=== PATIENT | male | born 2000 | race Caucasian/White ===

== ENCOUNTER 2022-12-10 16:18 | Observation (INO) ==
[2022-12-10] MEDS ORDERED: LIDO/EPINEPHRINE/SOD BICARB 50 ML VIAL INFIL ONE (16:40)
[2022-12-10] MEDS ORDERED: DIPHTHERIA/TETANUS/PERTUSSIS 0.5mL SYR/VIAL (Age 7+yrs) IM ONE (16:42)
--- NOTE | 2022-12-10 16:47 | Emergency Department Note ---
Impression & Plan Puncture wound of right knee with complication, Joint injury of right knee ED Provider Note CHIEF COMPLAINT: Right knee laceration HISTORY OF PRESENT ILLNESS: This 22-year-old male patient presents to the emergency department by private vehicle with complaint of laceration to the back of his right knee that occurred around 4 PM today. The patient states that he was trying to climb over a fence and fell off the post in the back of his knee got impaled on a metal fence post. The patient's girlfriend states she had to lift his leg up off of the metal post. The bleeding has not stopped. He denies weakness or numbness of the leg. The patient rates the pain as throbbing and 8/10. The patient denies any other injuries from the fall. The patient's Tetanus shot is not up to date. The patient has not noticed any swelling or bruising in the rest of the leg. There is pain with bending the knee and walking on the leg. The patient states he is able to walk on it. He denies any previous injuries to this knee. No ankle, foot or hip pain. He does not take any blood thinner medications. REVIEW OF SYSTEMS: A complete 10 point review of systems was reviewed with the patient with pertinent positives and negatives as per history of present illness. All else were negative. ALLERGIES: No known allergies PMH: No significant past medical or surgical history SOCIAL HISTORY: Lives at home, patient is a [employer] student, denies tobacco use PHYSICAL EXAM: Vital Signs: Reviewed in triage notes, vital signs stable. GENERAL: Pleasant and cooperative, in no acute distress, well-developed, well- nourished. NEUROLOGIC: Alert and oriented X 4 with normal affect. No focal neurologic deficits noted. Normal strength and sensation in all 4 extremities. Normal speech. HEENT: Normocephalic, atraumatic. NECK: Supple, full active range of motion without discomfort. RESPIRATORY: Clear to auscultation bilaterally with no wheezing, crackles, rhonchi or stridor. Equal expansion bilaterally. CARDIOVASCULAR: Regular rate and rhythm with no murmurs, rubs or gallops. Normal peripheral perfusion, 2+ pulses in all 4 extremities. No peripheral edema. GASTROINTESTINAL: Soft, nontender, nondistended. No rebound tenderness or guarding. No palpable masses or HSM. Bowel sounds present in all quadrants. No CVA tenderness bilaterally. SKIN: There is an open gaping laceration on the posterior aspect of the right knee which is approximately 3 cm in length. The edges gape widely apart. There is no foreign material in the wound and it looks clean. There is minimal active bleeding. There is muscle noted in the base of the wound, no bone or tendon seen. Normal strength and movement of the knee joint, pain with flexion and full extension. Capillary refill less than 2 seconds. Normal sensation to light and sharp touch. MUSCULOSKELETAL: The right knee is not swollen. There is an area of ecchymosis on the anterior lateral aspect of the knee. There is tenderness along the lateral aspect of the knee with palpation and lateral joint line tenderness. There is no joint effusion present. There is extensive palpable crepitus along the lateral and posterior aspect of the right knee, extending into the distal thigh and proximal posterior and lateral calf region. The patella does not subluxate. Strength of the quads and hamstrings is 5/5. The foot and toes are warm and well-perfused. Dorsalis pedis and posterior tibialis pulses are 2+. Sensation to pain and light touch is intact. Capillary refill less than 2 seconds. EMERGENCY DEPARTMENT COURSE: I examined the patient. There is a large gaping wound in the posterior lateral aspect of the right knee and an area of ecchymosis in the anterolateral aspect of the knee which correlates to the area where the patient was impaled by the metal fence post. The patient's girlfriend notes that there was tenting of the fence post on the anterior skin, but it did not penetrate through the skin on the anterior aspect. By my measurement, the fence post probably penetrated by 10-11 cm. Tdap booster vaccine was given. An x-ray of the right knee was performed, which shows extensive subcutaneous and deep soft tissue gas along the lateral aspect of the knee which may extend into the suprapatellar joint space. Additional orders were placed for labs, IV fluids, and 2 g IV Ancef for antibiotic coverage. I spoke on the phone with Dr. Antunez, orthopedic surgery, who recommended performing CT noncontrast of the right knee to evaluate for intra-articular gas. CT was ordered and reviewed, read by stat rad and noting air extending into the joint capsule concerning for injury to the lateral retinacular structures, with no findings for fracture. CT findings were discussed with Dr. Antunez, he recommended that I perform washout and loose closure of the wound for now (see procedure note below) and he will plan to take the patient to the OR in the morning for formal washout. The patient will be admitted for observation overnight to the orthopedic service. The patient was updated on the plan for admission and surgery in the morning, he verbalized understanding and was comfortable with this plan. I did offer to speak with the patient's parents regarding this plan, however the patient declined and states he has been keeping his parents updated. The patient was stable at the time of admission. PROCEDURE NOTE: Right Knee Laceration Repair Verbal consent was obtained from the patient to perform the procedure. Using sterile technique the wound was cleansed with Betadine. The area was sterilely draped. Approximately 4 ml of 1% buffered lidocaine with epinephrine was used to anesthetize the laceration on the posterior right knee. Once the patient was anesthetized, the wound was copiously irrigated under pressure with Betadine and sterile saline. The wound was explored and was as described above. The laceration was repaired using 2 simple interrupted 4-0 nylon sutures with the wound edges being loosely approximated. The patient tolerated the procedure well. Hemostasis was achieved. The area was cleaned with sterile saline and dressed with sterile gauze. The chart was completed utilizing [employer] Speech voice recognition software. Grammatical errors, random word insertions, pronoun errors, and incomplete sentences are an occasional consequence of this system due to software limitations, ambient noise, and hardware issues. Any formal questions or concerns about the content, text, or information contained within the body of this dictation should be directly addressed to the nurse practitioner for clarification. Past Med/Surg History Social History Smoking Status: Never smoker Second Hand Exposure: No; Do You Dip or Chew Tobacco: No; Tobacco Cessation Education Requested by Patient: No Hx Alcohol Use: Yes Alcohol type: beer Hx Substance Use: No Preferred Language: Icelandic Communication Ability: Effective American Sign Language Interpreter Required: No Beliefs That Will Affect Care: None Current Living Situation: Alone Current Living Situation Comment: With cat Other Information That Helps Us Care for You: No Feels Safe at Home: Yes Safety Concerns: Feels Safe At This Time Allergies Allergies Allergy/AdvReac Type Severity Reaction Status Date / Time No Known Allergies Allergy Unverified 12/10/22 18:39 Home Meds Home Medications Medication Instructions Recorded Confirmed No Known Home Medications 12/10/22 12/10/22 Results & Data (ED) Vital Signs Vital Signs - 24 hr 12/10/22 16:25 12/10/22 19:18 12/10/22 21:07 Temperature 36.4 C L Temperature Source Temporal Artery Scan Pulse Rate 75 Pulse Rate [Finger] 70 61 Pulse Rhythm Regular Pulse Strength Normal Respiratory Rate 20 18 18 Respiratory Effort / Characteristics Non-Labored Spontaneous Respiratory Depth Normal Respiratory Pattern Regular Blood Pressure 128/76 Blood Pressure [Right Arm] 124/51 L 114/58 L Blood Pressure Mean 93 Blood Pressure Mean [Right Arm] 75 76 Blood Pressure Position Sitting Pulse Oximetry 100 100 98 Oxygen Delivery Method Room Air Room Air Room Air Sepsis Recent Fever Within 48 Hours No Sepsis New/Unexplained Change in Mental Status No Sepsis Action Taken by Nursing No Action Required 12/10/22 22:57 Temperature Temperature Source Pulse Rate Pulse Rate [Finger] 68 Pulse Rhythm Pulse Strength Respiratory Rate 16 Respiratory Effort / Characteristics Respiratory Depth Respiratory Pattern Blood Pressure Blood Pressure [Right Arm] 109/87 Blood Pressure Mean Blood Pressure Mean [Right Arm] 94 Blood Pressure Position Pulse Oximetry 98 Oxygen Delivery Method Room Air Sepsis Recent Fever Within 48 Hours Sepsis New/Unexplained Change in Mental Status Sepsis Action Taken by Nursing Laboratory Data 12/10/22 18:18 12/10/22 18:18 Lab Results 12/10/22 12/10/22 12/10/22 Range/Units 18:18 18:18 21:30 WBC 10.63 (4.8-10.8) K/ul RBC 4.95 (4.70-6.10) M/uL Hgb 15.0 (14.0-18.0) g/dl Hct 43.1 (42.0-52.0) % MCV 87.1 (80.0-100.0) fL MCH 30.3 (25.0-34.0) pg MCHC 34.8 (32.0-36.0) g/dL RDW Std Deviation 39.1 (36.4-46.3) fL RDW Coeff of Bo 12.2 (11.5-14.5) % Plt Count 176 (130-400) K/uL MPV 10.7 (9.4-12.4) fL Immature Gran % (Auto) 0.4 % Neut % (Auto) 80.1 % Lymph % (Auto) 13.0 % [place] % (Auto) 6.0 % Eos % (Auto) 0.2 % Baso % (Auto) 0.3 % Neut # (Auto) 8.52 H (1.40-6.50) K/uL Lymph # (Auto) 1.38 (1.2-3.4) K/uL [place] # (Auto) 0.64 H (0.11-0.59) K/uL Eos # (Auto) 0.02 (0-0.50) K/uL Baso # (Auto) 0.03 (0-0.2) K/uL Immature Gran # (Auto) 0.04 (0.01-0.20) K/uL Sodium 135 L (136-145) mmol/L Potassium 4.0 (3.5-5.1) mmol/L Chloride 101 (98-107) mmol/L Carbon Dioxide 28 (21-32) mmol/L Anion Gap 6 (3-11) BUN 21 (6-23) mg/dl Creatinine 1.29 (0.6-1.4) mg/dl Est Cr Clr Drug Dosing 103.2 ml/min Est GFR ( Amer) 91.9 ml/min Est GFR (Non-Af Amer) 79.3 ml/min BUN/Creatinine Ratio 16.3 (10-20) Glucose 124 H (70-99(Fasting)) mg/dl Calcium 9.0 (8.6-10.3) mg/dl SARS-CoV-2, RNA, NAAT NEGATIVE (NEGATIVE) Administered Medications Sodium Chloride (Nss 1000ml) 1,000 mls @ 100 mls/hr IV .Q10H [facility] Stop: 01/10/23 05:44 Last Admin: 12/11/22 05:45 Dose: 100 mls/hr Documented By: LAC Discontinued Medications Bupivacaine HCl/Epinephrine Bitart (Bupivacaine/Epinephrine 0.25% 1:200,000 30 Ml Vial) Confirm Administered Dose 30 ml .ROUTE .STK-MED ONE Stop: 12/11/22 10:34 Last Admin: 12/11/22 11:43 Dose: Not Given Documented By: SRL Diphtheria/Pertussis/Tetanus Vacc (Diphtheria/Tetanus/Pertussis 0.5ml Syr/Vial (Age 7+Yrs)) 0.5 ml IM .ONCE ONE Stop: 12/10/22 16:43 Last Admin: 12/10/22 16:49 Dose: 0.5 ml Documented By: NJ Epinephrine HCl (Epinephrine Hcl Inj 1 Mg/Ml 30ml) Confirm Administered Dose 1 mg .ROUTE .STK-MED ONE Stop: 12/11/22 10:35 Last Admin: 12/11/22 11:43 Dose: Not Given Documented By: SRL Sodium Chloride (Nss 1000ml) 1,000 mls @ 999 mls/hr IV .Q1H1M ONE Stop: 12/10/22 19:18 Last Infusion: 12/10/22 19:51 Dose: 0 mls/hr Documented By: Admin: 12/10/22 18:49 Dose: 999 mls/hr Documented By: NJ Cefazolin Sodium (Ancef 2000mg) 2,000 mg in 15 mls @ 3.75 mls/min IV NOW STA Stop: 12/10/22 18:21 Last Admin: 12/10/22 18:49 Dose: 3.75 mls/min Documented By: NJ Cefazolin Sodium (Ancef 2000mg) 2,000 mg in 15 mls @ 3.75 mls/min IV PREOP URBAN; Protocol Stop: 12/11/22 09:50 Last Admin: 12/11/22 10:46 Dose: 3.75 mls/min Documented By: [id number] Lidocaine/Epinephrine (Lido/Epinephrine/Sod Bicarb 50 Ml Vial) 20 ml INFIL NOW ONE Stop: 12/10/22 16:41 Last Admin: 12/10/22 16:49 Dose: 20 ml Documented By: NJ Imaging Data Radiologist's Impression: Knee X-Ray 12/10/22 16:40 XR knee RT 1 or 2V routine CLINICAL HISTORY: Right knee laceration. COMPARISON STUDY: None. FINDINGS: No acute fracture or dislocation within the right knee. 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 No radiopaque foreign bodies. No significant knee effusion. There is subcutaneous and deep soft tissue gas along the lateral aspect of the knee likely corresponding to the patient's history of a laceration. The gas may extend into the suprapatellar joint space. IMPRESSION: 1. No acute fracture or dislocation within the right knee. 2. There is subcutaneous and deep soft tissue gas along the lateral aspect of the knee likely corresponding to the patient's history of a laceration. The gas may extend into the suprapatellar joint space. ACT 112: Negative or not required by law. Electronically signed by: Thanh Cruz M.D. 12/10/2022 5:[address] 12/10/22 18:25 Exam(s): CT RIGHT KNEE Without Contrast EXAM: CT Right Lower Extremity Without Intravenous Contrast, Knee CLINICAL HISTORY: Reason for exam: eval gas in joint. TECHNIQUE: Axial computed tomography images of the right knee without intravenous contrast. CTDI is 8.03 mGy and DLP is 215.61 mGy-cm. Automated exposure control was utilized for the study. A dose lowering technique was utilized adhering to the principles of ALARA. COMPARISON: No relevant prior studies available. FINDINGS IMPRESSION: Laceration of the posterior lateral aspect of the knee, with extensive air between the fat planes of the musculature, preferentially located between the gastrocnemius and deep to the vastus lateralis. Air extends into the joint capsule, indicating injury to the lateral retinacular structures. No patella fracture. Patient has a bipartite patella. Electronically signed by: Andrea Pickett MD 12/10/22 21:13 PM Discharge Plan Visit Data Chief Complaint: Leg Injury/Pain Stated Complaint: RIGHT LEG INJURY ED Provider: Fadi Sarkar ED Midlevel Provider: Megan Tyler Discharge Problem: Puncture wound of right knee with complication, Joint injury of right knee Patient Disposition: Admitted As Inpatient Condition: Good Discharge Instructions Interventions: ED Discharge Assessment Last Done: 12/11/22 01:34
--- NOTE | 2022-12-10 17:55 | XRay Report ---
XR knee RT 1 or 2V routine CLINICAL HISTORY: Right knee laceration. COMPARISON STUDY: None. FINDINGS: No acute fracture or dislocation within the right knee. Incidental note is made of a bipart ite patella. No radiopaque foreign bodies. No significant knee effusion. There is subcutaneous and de ep soft tissue gas along the lateral aspect of the knee likely corresponding to the patient's history of a laceration. The gas may extend into the suprapatellar joint space. IMPRESSION: 1. No acute fracture or dislocation within the right knee. 2. There is subcutaneous and deep soft tissue gas along the lateral aspect of the knee likely corresp onding to the patient's history of a laceration. The gas may extend into the suprapatellar joint spac e. ACT 112: Negative or not required by law. Electronically signed by: Thanh Cruz M.D. 12/10/2022 5:53 PM
[2022-12-10] MEDS ORDERED: SODIUM CHLORIDE 0.9% 1000ML 1,000 ML IV ONE (18:18)
[2022-12-10] MEDS ORDERED: ceFAZolin 2000MG 2,000 MG/15 ML SYR IV STA (18:18)
[2022-12-10 19:09] LABS: Basophils # (auto) 0.03 K/uL (0-0.2); Basophils % (auto) 0.3 %; Eosinophils # (auto) 0.02 K/uL (0-0.50); Eosinophils % (auto) 0.2 %; Hematocrit (blood only) 43.1 % (42.0-52.0); Immature Granulocytes # (auto) 0.04 K/uL (0.01-0.20); Immature Granulocytes % (auto) 0.4 %; Lymphocytes # (auto) 1.38 K/uL (1.2-3.4); Mean Corpuscular Hemoglobin 30.3 pg (25.0-34.0); Mean Corpuscular Hgb Conc 34.8 g/dL (32.0-36.0); Mean Corpuscular Volume 87.1 fL (80.0-100.0); Mean Platelet Volume 10.7 fL (9.4-12.4); Monocytes # (auto) 0.64 K/uL (0.11-0.59); Neutrophils # (auto) 8.52 K/uL (1.40-6.50); Neutrophils % (auto) 80.1 %; Platelet Count 176 K/uL (130-400); RDW Coefficient of Variation 12.2 % (11.5-14.5); RDW Standard Deviation 39.1 fL (36.4-46.3); Red Blood Count 4.95 M/uL (4.70-6.10); White Blood Count 10.63 K/ul (4.8-10.8)
[2022-12-10 19:25] LABS: BUN Creatinine Ratio 16.3 (10-20); Creatinine Clr Calc Pharmacy 103.2 ml/min; Est GFR (African American) 91.9 ml/min; Est GFR (Non-African American) 79.3 ml/min
--- NOTE | 2022-12-10 21:13 | CT Scan Report ---
Exam(s): CT RIGHT KNEE Without Contrast EXAM: CT Right Lower Extremity Without Intravenous Contrast, Knee CLINICAL HISTORY: Reason for exam: eval gas in joint. TECHNIQUE: Axial computed tomography images of the right knee without intravenous contrast. CTDI is 8.03 mGy and DLP is 215.61 mGy-cm. Automated exposure control was utilized for the study. A dose lowering technique was utilized adhering to the principles of ALARA. COMPARISON: No relevant prior studies available. FINDINGS IMPRESSION: Laceration of the posterior lateral aspect of the knee, with extensive air between the fat planes of the musculature, preferentially located between the gastrocnemius and deep to the vastus lateralis. Air extends into the joint capsule, indicating injury to the lateral retinacular structures. No patella fracture. Patient has a bipartite patella. Electronically signed by: Andrea Pickett MD 12/10/22 21:13 PM
[2022-12-10] MEDS ORDERED: ONDANSETRON INJ 2 MG/ML 2 ML VIAL IV PRN (23:45)
[2022-12-10] MEDS ORDERED: diphenhydrAMINE Capsule 25 MG CAP PO PRN (23:45)
[2022-12-10] MEDS ORDERED: oxyCODONE/ACETAMINOPHEN 5mg/325mg TAB PO PRN (23:45)
[2022-12-11] MEDS: SODIUM CHLORIDE 0.9% 1000ML 1,000 ML IV SCH ×2 (05:45→17:13)
[2022-12-11] MEDS ORDERED: ceFAZolin 2000MG 2,000 MG/15 ML SYR IV SCH (06:00)
[2022-12-11] MEDS ORDERED: DEXAMETHASONE SOD INJ 4 MG/ML VIAL ONE (07:46)
[2022-12-11] MEDS ORDERED: LIDOCAINE 2% 2 ML VIAL/AMP(20MG/ML) INFIL ONE (07:46)
[2022-12-11] MEDS ORDERED: MIDAZOLAM HCL 1 MG/ML 2ML VIAL ONE (07:46)
[2022-12-11] MEDS ORDERED: PROPOFOL IV EMULSION 10 MG/ML 20 ML VIAL IV ONE (07:46)
[2022-12-11] MEDS ORDERED: fentaNYL citrate PF 100 MCG/2 ML VIAL ONE ×2 (07:46→11:02)
[2022-12-11] MEDS ORDERED: ONDANSETRON INJ 2 MG/ML 2 ML VIAL ONE (07:46)
--- NOTE | 2022-12-11 07:52 | Anesthesiology Consultation ---
Date of Service December 11, 2022 Assessment & Plan Chart Review Chart Review: Acceptable Risk for Surgery and Patient NOT seen in Pre Admission Testing Consults Requested none ASA ASA2 Proposed Anesthesia Anesthesia Type: General History Surgery Operation Date: 12/11/22 12:00 Proposed Procedures p Incision and Drainage Knee(Right) - Ozzie Antunez DO Height/Weight Height: 6 ft Weight: 90.2 kg Allergies Allergy/AdvReac Type Severity Reaction Status Date / Time No Known Allergies Allergy Unverified 12/10/22 18:39 Medications Home Medications Medication Instructions Recorded Confirmed Last Taken No Known Home Medications 12/10/22 12/10/22 Unknown Active Medications Generic Name Dose Route Start Last Admin Trade Name Freq PRN Reason Stop Dose Admin Sodium Chloride 1,000 mls @ 100 mls/hr 12/11/22 05:45 12/11/22 05:45 Nss 1000ml IV 01/10/23 05:44 100 mls/hr .Q10H URBAN Administration Exercise / Class Metabolic Activity 1 > 8 Run/Swim/Ski/Tennis Past Anesthesia History No Hx of Anesthesia Complications and No Family Hx of Anesthesia Complications History of PONV No Hx of PONV and No Hx of Motion Sickness Social History Smoking Status: Never smoker Do You Dip or Chew Tobacco: No Hx Alcohol Use: Yes Alcohol type: beer alcohol intake frequency: holidays/special occasions only Hx Substance Use: No substance use type: does not use Physical Exam Vital Signs Last Vital Signs Temp 36.5 C 12/11/22 07:49 Pulse 60 12/11/22 07:49 Resp 18 12/11/22 07:49 BP 112/67 12/11/22 07:49 Pulse Ox 98 12/11/22 07:49 O2 Del Method Room Air 12/11/22 07:49 Testing Laboratory Results 12/10/22 18:18 12/10/22 18:18
--- NOTE | 2022-12-11 08:42 | History & Physical Report ---
Date of Service December 11, 2022 Assessment & Plan (1) Puncture wound of right knee with complication: Plan Right knee traumatic arthrotomy -IV antibiotics -Pain control -Hold DVT prophylaxis for OR -Plan for OR today for right knee irrigation and debridement Admission and Anticipated Discharge Date Admission Date: December 10, 2022 History of Present Illness Chief Complaint: Right knee penetrating injury Primary Care Provider: NO PCP 22-year-old male presenting to [facility] emergency department after attempting to hop over a fence to get a volleyball. He reports that while he was trying to get back over the fence his leg got caught and one of the post went through the posterior lateral aspect of his knee. He reports that he needed help getting off the fence. He presented to the emergency department where radiographs and imaging were obtained. CT scan did demonstrate some subcutaneous gas which did extend into the lateral retinacular structures consistent with a traumatic arthrotomy. Patient was given antibiotics as well as tetanus status was updated. Was otherwise noted to be neurovascular intact. Patient admitted for planned right knee irrigation and debridement Allergies Allergy/AdvReac Type Severity Reaction Status Date / Time No Known Allergies Allergy Unverified 12/10/22 18:39 Home Medications Medication Instructions Recorded Confirmed Type No Known Home Medications 12/10/22 12/10/22 History Past Med/Surg History Social History Smoking Status: Never smoker Second Hand Exposure: No; Do You Dip or Chew Tobacco: No; Tobacco Cessation Education Requested by Patient: No Hx Alcohol Use: Yes Alcohol type: beer Hx Substance Use: No Preferred Language: Italian Communication Ability: Effective Asset Protection Manager Required: No Beliefs That Will Affect Care: None Current Living Situation: Alone Current Living Situation Comment: With cat Other Information That Helps Us Care for You: No Feels Safe at Home: Yes Safety Concerns: Feels Safe At This Time Physical Exam Constitutional: General: No acute distress, alert and oriented person place and time Respiratory: No audible wheezing Cardiovascular: Nontachycardic Musculoskeletal: Right lower extremity -There is a laceration about 2 cm in size over the posterior lateral aspect of the popliteal fossa. No other skin lesions are noted. -No significant effusion -Patient is able to straight leg raise and flex and extend without difficulty. -Sensation intact to light touch s/spn/dpn/t/s -Fires ta/ehl/gsc +dp/pt Results & Data Results & Data Vital Signs (Past 12 Hours) Vital Signs Temp Pulse Resp BP Pulse Ox O2 Del Method 12/11/22 07:49 36.5 C 60 18 112/67 98 Room Air 12/11/22 02:34 36.9 C 62 16 130/69 98 Room Air 12/11/22 00:58 66 16 126/68 97 Room Air 12/11/22 00:10 62 16 122/60 97 Room Air 12/10/22 22:57 68 16 109/87 98 Room Air 12/10/22 21:07 61 18 114/58 L 98 Room Air Diagnostic Findings Radiographs and CT scan of the knee demonstrate a bipartite patella. There is subcutaneous gas consistent with penetrating injury stemming from posterior lateral aspect of the knee into the lateral retinacular structures. Code Status & VTE Plan VTE Prophylaxis Plan VTE Prophylaxis will be ordered: No Reason for no VTE drug order: Treatment not indicated
[2022-12-11] MEDS ORDERED: ATROPINE SULFATE 0.1 MG/ML 10ML SYR IV PRN (10:31)
[2022-12-11] MEDS ORDERED: FLUMAZENIL 0.1 MG/1 ML 10 ML VIAL IV PRN (10:31)
[2022-12-11] MEDS ORDERED: PROMETHAZINE HCL 12.5 MG in SODIUM CHLORIDE 0.9% 50 ML IV PRN (10:31)
[2022-12-11] MEDS ORDERED: NALOXONE HCL 0.4 MG/1 ML VIAL/CARP IV PRN ×2 (10:31→11:48)
[2022-12-11] MEDS ORDERED: ONDANSETRON INJ 2 MG/ML 2 ML VIAL IV PRN ×2 (10:31→11:48)
[2022-12-11] MEDS ORDERED: fentaNYL citrate PF 100 MCG/2 ML VIAL IV PRN (10:31)
[2022-12-11] MEDS ORDERED: ePHEDrine sulfate 50 MG/ML AMP IV PRN (10:31)
[2022-12-11] MEDS ORDERED: HYDROmorphone INJ 1 MG/ML SYRINGE IV PRN (10:31)
[2022-12-11] MEDS ORDERED: BUPIVACAINE/EPINEPHRINE 0.25% 1:200,000 30 ML VIAL ONE (10:33)
[2022-12-11] MEDS ORDERED: EPINEPHrine HCL INJ 1 MG/ML 30ML ONE (10:34)
--- NOTE | 2022-12-11 11:43 | Post Operative Brief Note ---
Immediate Post Op Note v1 Date of Surgery December 11, 2022 Pre & Post Diagnosis Operation Date: 12/11/22 12:00 <No data on this case meets the specified criteria> I identified the patient and participated in the time-out.: Yes Procedure Operation Date: 12/11/22 12:00 Actual Procedures p Right Arthroscopy Knee(Right) - Ozzie Antunez DO Surgeon Ozzie Antunez DO Sales Support Representative None Estimated Blood Loss 5 Findings Consistent with Post-Op Diagnosis See dictation Complications None
[2022-12-11] MEDS ORDERED: bisacodyL 10 MG SUPP PR PRN (11:48)
[2022-12-11] MEDS ORDERED: traMADol HCL 50 MG TABLET PO PRN (11:48)
[2022-12-11] MEDS ORDERED: METOCLOPRAMIDE HCL INJ 5 MG/ML 2 ML VIAL IV PRN (11:48)
[2022-12-11] MEDS ORDERED: MAGNESIUM HYDROXIDE SUSP 30 ML UDC PO PRN (11:48)
--- NOTE | 2022-12-11 11:48 | Operative Report ---
Post Operative Report Pre & Post Diagnosis Operation Date: 12/11/22 12:00 <No data on this case meets the specified criteria> I identified the patient and participated in the time-out.: Yes Procedure Operation Date: 12/11/22 12:00 Actual Procedures p Right Arthroscopy Knee(Right) - Ozzie Antunez DO Surgeon Ozzie Antunez, Brand Designer None Estimated Blood Loss 5 Findings Consistent with Post-Op Diagnosis See dictation Specimens None Complications None Indications 22-year-old male who presented to [facility] emergency department yesterday evening after injuring his right knee while climbing over a fence. He reports that one of the packets of the fence went through the posterior lateral aspect of his knee. In the emergency department imaging including CT scan was obtained to rule out potential traumatic arthrotomy and there did appear to be some subcutaneous gas which extended down into the lateral retinacular structures concerning for traumatic arthrotomy. Patient received antibiotics and tetanus per protocol and was admitted for planned knee irrigation and debridement. I had a lengthy discussion with him regarding risk benefits potential complications of right knee arthroscopy with irrigation and debridement. There is include but are not limited to: Infection, neurovascular injury, DVT and need for future surgery. After reviewing these he elected to proceed with surgical intervention and written consent was obtained. Description of Procedure Patient was properly identified in the preoperative holding area and the right lower extremity was marked. He was taken back to the operative suite where he received antibiotics per protocol. He was positioned on the regular or table with a nonsterile right thigh tourniquet and his right leg was positioned in a leg hurst. He was then prepped and draped in the standard orthopedic fashion and timeout was then performed. Esmarch was used to exsanguinate the right lower extremity and tourniquet was inflated to 250 mmHg. Lateral infrapatellar portal was then established using a scalpel. Trocar was then introduced into the suprapatellar pouch. Suprapatellar pouch was visualized and there did not appear to be any traumatic lacerations involving that area. There is no evidence of foreign body. Medial gutter was then inspected followed by the medial compartment. A spinal needle was then used to establish the medial infrapatellar portal and a scalpel was used to perform the portal. Medial compartment demonstrated no evidence of chondromalacia or meniscus tear. There is no evidence of ACL tear in the intercondylar notch. Lateral compartment d emonstrated no evidence of chondromalacia or meniscus tear. Lateral retinacular structures otherwise appear to be grossly intact. Patellofemoral groove was inspected and demonstrated no evidence of foreign body or chondromalacia. A shaver was then inserted and approximately 6 L of normal saline solution was irrigated through the intra-articular space. Fluids were then turned off and any residual fluid was suctioned. Arthroscope was then removed. Portals were then closed using 3-0 nylon suture. Sterile dressing of Xeroform 4 x 4 gauze ABD web roll and Wing was then applied. The tourniquet was then deflated. The patient tolerated the procedure well and was taken the recovery room in hemodynamically stable condition. I attest to the content of the Intraoperative Record and any orders documented therein. Any exceptions are noted below.
[2022-12-11] MEDS ORDERED: SODIUM CHLORIDE 0.9% 1000ML 1,000 ML IV SCH (12:00)
--- NOTE | 2022-12-11 12:11 | Anesthesiology Progress Note ---
Date of Service December 11, 2022 Anesthesia Post Procedure Vital Signs Vital Signs: Temp Pulse Pulse Pulse Resp BP BP 12/11/22 12:05 55 L 12 119/56 L 12/11/22 11:55 61 12 109/49 L 12/11/22 11:46 36.3 C L 60 14 106/49 L 12/11/22 07:49 36.5 C 60 18 112/67 12/11/22 02:34 36.9 C 62 16 130/69 12/11/22 00:58 66 16 126/68 12/11/22 00:10 62 16 122/60 12/10/22 22:57 68 16 109/87 12/10/22 21:07 61 18 114/58 L 12/10/22 19:18 70 18 124/51 L 12/10/22 16:25 36.4 C L 75 20 128/76 Pulse Ox O2 Del Method O2 Flow Rate 12/11/22 12:05 99 Nasal Cannula 3 12/11/22 11:55 95 Nasal Cannula 3 12/11/22 11:46 96 Nasal Cannula 3 12/11/22 07:49 98 Room Air 12/11/22 02:34 98 Room Air 12/11/22 00:58 97 Room Air 12/11/22 00:10 97 Room Air 12/10/22 22:57 98 Room Air 12/10/22 21:07 98 Room Air 12/10/22 19:18 100 Room Air 12/10/22 16:25 100 Room Air Pain Intensity Right Leg: Pain Intensity: 3 Transfer of Care Handoff Completed per policy Notes Mental Status: alert / awake / arousable Patient Amnestic to Procedure: Yes Nausea / Vomiting: adequately controlled Pain: adequately controlled Airway Patency, RR, SpO2: stable & adequate BP & HR: stable & adequate Hydration State: stable & adequate Anesthetic Complications: no major complications apparent
[2022-12-11] MEDS ORDERED: SENNA 8.6 MG TAB PO SCH (21:00)
[2022-12-11] MEDS ORDERED: DOCUSATE SODIUM 100 MG CAP PO SCH (21:00)
[2022-12-12] MEDS ORDERED: MULTIVITAMIN TAB PO SCH (09:00)
== END 2022-12-11 18:46 | disposition home or self-care (01) ==
LOC: ED 16:18 → 3N 16:18